=== PATIENT | female | born 1980 | race Caucasian/White ===

== ENCOUNTER 2025-01-01 20:26 | Emergency (ER) | payer OTHER, SELFPAY ==
[2025-01-01] VITALS (9 sets, daily range): BP systolic 106–135; BP diastolic 62–80; PULSE 66–90; RESP 12–23; TEMP 36.8; O2SAT 92–99; BMI 25.1
--- NOTE | 2025-01-01 20:30 | DI.RAD.S_ITS ---
PROCEDURE: XR CHEST 1V INDICATIONS: Chest Pain TECHNIQUE: One view of the chest was acquired. COMPARISON: None. FINDINGS: Surgical changes and devices: None. Lungs and pleura: Lungs are clear. No pleural effusions or pneumothorax. Mediastinum: Mediastinal contours appear normal. Heart size is normal. Bones and chest wall: No suspicious bony lesions. Overlying soft tissues appear unremarkable. IMPRESSION: No acute cardiopulmonary abnormality is seen. Dictated by: James Osei M.D. on 01/01/2025 at 20:51 Approved by: James Osei M.D. on 01/01/2025 at 20:51
--- NOTE | 2025-01-01 20:30 | EKG_ITS ---
[address] [address] Test Date: 2025-01-01 Pat Name: Hayley Vega Department: [facility] Room: Gender: Female [employer] App[employer]ice: CHELSEA DEWEY : 1980 Requested By: Order Number: [id number] Reading MD: Naveen Alexandre MD Measurements Intervals [place] Rate: 79 P: 25 [place]: 146 QRS: 22 QRSD: 82 T: 12 QT: 388 QTc: 444 Interpretive Statements Normal sinus rhythm Electronically Signed On 01-03-2025 6:40:19 PDT by Naveen Alexandre MD
[2025-01-01] MEDS: ASPIRIN 81 MG CHEW TAB 324 MG PO (20:40)
[2025-01-01 21:03] LABS: Add Manual Diff / Slide Review NO; Basophils Absolute Auto 100 /uL (0-100); Basophils Percent Auto 1.3 % (0-2); Eosinophils Absolute Auto 100 /uL (0-450); Eosinophils Percent Auto 1.1 % (2-4); Hematocrit 34.3 % (36-46); Hemoglobin 11.1 g/dL (12.0-16.0); INR 1.2 (0.9-1.3); Lymphocytes Absolute Auto 2300 /uL (1100-4500); Lymphocytes Percent Auto 23.3 % (25-40); Mean Corpuscular HGB Conc 32.4 % (30-36); Mean Corpuscular Hemoglobin 24.6 PG (26-34); Mean Corpuscular Volume 76.1 fL (80-100); Monocytes Absolute Auto 700 /uL (0-900); Monocytes Percent Auto 6.9 % (3-14); Neutrophils Absolute Auto 6500 /uL (1500-7000); Neutrophils Percent Auto 67.4 % (50-75); Platelet Count 287 X10^3/uL (150-400); Prothrombin Time 13.6 SECONDS (9.4-12.5); Red Cell Distribution Width 15.7 % (11.6-14.8); White Blood Cell Count 9.7 X10^3/uL (4.5-11.0)
[2025-01-01 21:06] LABS: PTT Partial Thromboplastin Tim 34 SECONDS (25.1-36.5)
[2025-01-01 21:08] LABS: Alanine Aminotransferase 22 IU/L (<35); Albumin 4.3 g/dL (3.5-5.0); Albumin Globulin Ratio 1.5 (1.0-2.8); Alkaline Phosphatase 54 U/L (38-126); Aspartate Aminotransferase 28 IU/L (14-36); Bilirubin Total 0.8 mg/dL (0.2-1.3); Blood Urea Nitrogen 9 mg/dL (7-17); Calcium 9.2 mg/dL (8.4-10.2); Carbon Dioxide 25 mmol/L (22-32); Chloride 106 mmol/L (98-107); Creatine Kinase 119 U/L (30-135); Estimated Glomerular Filt Rate > 60 mL/min (>60); Globulin 2.9 g/dL (1.7-4.1); Glucose 96 mg/dL (70-99); HEMOLYSIS < 15 (0-50); Lipase 39 U/L (23-300); Magnesium 2.1 mg/dL (1.6-2.3); Potassium 3.2 mmol/L (3.4-5.1); Sodium 138 mmol/L (137-145); Total Protein 7.2 g/dL (6.3-8.2)
--- NOTE | 2025-01-01 21:10 | ED.CHESTPAIN ---
HPI - Chest Pain General Chief Complaint: Chest Pain Stated Complaint: Poss Heart Attack Time Seen by Provider: 01/01/25 20:31 Source: patient Mode of arrival: Family Vehicle Limitations: no limitations History of Present Illness HPI narrative: Patient is a 44-year-old female with a past medical history of type 1 diabetes insulin-dependent presenting from home for evaluation of chest back pain, denies any radiation, states that it started a proximally 20 minutes prior to arrival, states it was during the [place], states that the pain makes her feel lightheaded, she states that she checked her blood glucose and it was 140. She denies any other symptoms such as headache shortness of breath fever chills nausea vomiting abdominal pain or any other GI/ symptoms time. Related Data Previous Rx's ?Medication ?Instructions ?Recorded cyclobenzaprine 10 mg tablet 10 mg PO BEDTIME PRN muscle spasm 01/01/25 #10 tabs Allergies Allergy/AdvReac Type Severity Reaction Status Date / Time No Known Drug Allergies Allergy Verified 01/01/25 20:35 Review of Systems Review of Systems Narrative: General: Denies fever, chills, weight loss HEENT: Denies headache, eye drainage, eye irritation, head trauma, sore throat, voice change Cardiovascular: Positive chest pain, denies palpitations, tachycardia Respiratory: Denies any shortness of breath, cough, wheeze, stridor GI/: Denies any abdominal pain, nausea, vomiting, diarrhea, bright red blood per rectum, melanotic stools, urinary frequency, urinary retention, dysuria, hematuria MSK: Denies any joint pain, muscle pains, swelling Skin: Denies any rashes, lesions, discoloration Neuro: Denies any headache, lightheadedness, dizziness, fainting, weakness Psych: Denies SI/HI Exam Narrative Exam Narrative: General: Cooperative, well-developed, not in acute distress HEENT: Normocephalic, atraumatic, PERRLA, normal sclera, eyelids normal Neck: Active full range of motion, atraumatic Chest: Normal to inspection, negative crepitus, no overlying erythema ecchymosis Respiratory: Normal respiratory effort, not in acute respiratory distress, clear to auscultation bilaterally negative cough, wheeze, tachypnea, rhonchi, rales Cardiology: Regular rate rhythm negative gallop, murmur, rubs GI/: No tenderness to palpation, soft, non rigid, normal to inspection, exam deferred MSK: Full active range of motion in all 4 extremities, atraumatic, no tenderness to palpation of any bony prominences Skin: No rashes or lesions noted Neuro: Alert awake oriented x3, moves all 4 extremities spontaneously, cranial nerves intact, able to answer all questions appropriately follows commands appropriately Psych: Cooperative, negative suicidal or homicidal ideations Initial Vital Signs Initial Vital Signs: Vital Signs Pulse Rate 90 01/01/25 20:33 Blood Pressure 135/80 01/01/25 20:33 Pulse Oximetry 92 01/01/25 20:33 Course Orders Ordered: ED Orders 01/01/25 20:30 XR chest 1V Stat EKG-12 Lead Stat 01/01/25 20:36 Complete Blood Count AUTO DIFF Stat Comprehensive Metabolic Panel Stat Lipase Stat Magnesium Stat NT-proBNP (BNP-Adult 18+) Stat PTT Partial Thromboplastin Marquise Stat Prothrombin Time INR Stat Troponin & CK Cardiac Panel Stat 01/01/25 21:29 CT head/brain wo con Stat 01/01/25 22:35 Trop I [Troponin I] Stat Discontinued Medications Aspirin (Aspirin 81 Mg Chew Tab) 324 mg PO NOW ONE Stop: 01/01/25 20:31 Last Admin: 01/01/25 20:40 Dose: 324 mg Documented By: ISMA Lorazepam (Lorazepam 2 Mg/Ml Inj) 1 mg IV NOW ONE Stop: 01/01/25 21:30 Last Admin: 01/01/25 21:58 Dose: Not Given Documented By: APRIL Lorazepam (Lorazepam 0.5 Mg Tablet) 1 mg PO NOW ONE Stop: 01/01/25 21:49 Last Admin: 01/01/25 21:53 Dose: 1 mg Documented By: WILMER Vital Signs Vital signs: Vital Signs - 8 hr 01/01/25 20:33 01/01/25 20:33 01/01/25 20:34 Temperature 98.2 F Pulse Rate 90 80 Respiratory Rate 22 Blood Pressure 135/80 135/80 Pulse Oximetry 92 99 Oxygen Delivery Method Room Air MDM - Chest Pain Lab Data 01/01/25 20:36 01/01/25 20:36 Labs: Lab Results 01/01/25 01/01/25 Range/Units 20:36 22:35 WBC 9.7 (4.5-11.0) X10^3/uL RBC 4.50 (4.0-5.2) X10^6/uL Hgb 11.1 L (12.0-16.0) g/dL Hct 34.3 L (36-46) % MCV 76.1 L (80-100) fL MCH 24.6 L (26-34) PG MCHC 32.4 (30-36) % RDW 15.7 H (11.6-14.8) % Plt Count 287 (150-400) X10^3/uL Neut % (Auto) 67.4 (50-75) % Lymph % (Auto) 23.3 L (25-40) % [place] % (Auto) 6.9 (3-14) % Eos % (Auto) 1.1 L (2-4) % Baso % (Auto) 1.3 (0-2) % Neut # (Auto) 6500 (4877-1350) /uL Lymph # (Auto) 2300 (9130-2282) /uL [place] # (Auto) 700 (0-900) /uL Eos # (Auto) 100 (0-450) /uL Baso # (Auto) 100 (0-100) /uL PT 13.6 H (9.4-12.5) SECONDS INR 1.2 (0.9-1.3) APTT 34 (25.1-36.5) SECONDS Sodium 138 (137-145) mmol/L Potassium 3.2 L (3.4-5.1) mmol/L Chloride 106 (98-107) mmol/L Carbon Dioxide 25 (22-32) mmol/L BUN 9 (7-17) mg/dL Creatinine 0.60 (0.52-1.04) mg/dL Estimated GFR > 60 (>60) mL/min BUN/Creatinine Ratio 15.0 (6-22) Glucose 96 (70-99) mg/dL Calcium 9.2 (8.4-10.2) mg/dL Magnesium 2.1 (1.6-2.3) mg/dL Total Bilirubin 0.8 (0.2-1.3) mg/dL AST 28 (14-36) IU/L ALT 22 (<35) IU/L Alkaline Phosphatase 54 (38-126) U/L Total Creatine Kinase 119 (30-135) U/L Troponin I < 0.012 < 0.012 (0.01-0.034) ng/mL NT-Pro-B Natriuret Pep < 20 (<125) pg/mL Total Protein 7.2 (6.3-8.2) g/dL Albumin 4.3 (3.5-5.0) g/dL Globulin 2.9 (1.7-4.1) g/dL Albumin/Globulin Ratio 1.5 (1.0-2.8) Lipase 39 (23-300) U/L Imaging Data Chest x-ray: Radiologist's Impression: [place] [address] XRay Report Signed Patient: Hayley Vega MR#: [id number] : 1980 Acct:[id number] Age/Sex: 44 / F Date of Service: 01/01/25 Loc: ED Accession Number: [id number] Procedure: XR chest 1V Ordering Provider: Patrick Matute D.O. PROCEDURE: XR CHEST 1V INDICATIONS: Chest Pain TECHNIQUE: One view of the chest was acquired. COMPARISON: None. FINDINGS: Surgical changes and devices: None. Lungs and pleura: Lungs are clear. No pleural effusions or pneumothorax. Mediastinum: Mediastinal contours appear normal. Heart size is normal. Bones and chest wall: No suspicious bony lesions. Overlying soft tissues appear unremarkable. IMPRESSION: No acute cardiopulmonary abnormality is seen. CT scan - head: Radiologist's Impression: [place] [address] CT Scan Report Signed Patient: Hayley Vega MR#: [id number] : 1980 Acct:[id number] Age/Sex: 44 / F Date of Service: 01/01/25 Loc: ED Accession Number: [id number] Procedure: CT head/brain wo con Ordering Provider: Patrick Matute D.O. PROCEDURE: CT HEAD/BRAIN WO CON INDICATIONS: light headed TECHNIQUE: Noncontrast 4.5 mm thick angled axial sections acquired from the foramen magnum to the vertex, with coronal and sagittal reformats. For radiation dose reduction, the following was used: automated exposure control, adjustment of mA and/or kV according to patient size. COMPARISON: None. FINDINGS: Image quality: Diagnostic. CSF spaces: Basal cisterns are patent. No extra-axial fluid collections. Ventricles are normal in size and shape. Brain: No midline shift. No intracranial mass effect or hemorrhage. Leslie-white matter interface is normal. Skull and face: Calvarium and visualized facial bones are intact, without suspicious lesions. Sinuses: Visualized sinuses and mastoids are clear. IMPRESSION: CT head without acute intracranial abnormalities. No mass or mass effect visualized. ECG Data Interpretation: EKG interpreted ED physician sinus 79 beats per minute QTC 444, nonspecific ST changes no STEMI MDM Narrative Medical decision making narrative: Patient is a 44-year-old female with a past medical history of type 1 diabetes insulin-dependent presents to the emergency department from home for evaluation of back/chest pain, states that this started 20 minutes prior to arrival. Patient states that these symptoms also caused her to feel little lightheaded dizzy. She did check her blood glucose and it was 140. At time of evaluation patient not complaining of any pain, lab work imaging performed here in the emergency department did not show any acute findings, CT head no acute intracranial abnormalities. Chest x-ray without any acute cardiopulmonary abnormality, troponin negative x2 EKG nonischemic in nature patient had improvement/resolution of symptoms after p.o. Ativan most likely pain musculoskeletal in nature however still gave patient recommendations to follow up with Cardiology strict return precautions given she verbalized understanding of this and agrees to being discharged home with outpatient follow up, patient will heart score 0 Discharge Plan Departure Patient Disposition: Home Clinical Impression: Chest pain, Back pain Instructions: DI for Chest Pain Activity Restrictions/Additional Instructions: Please follow up with Cardiology and primary care in outpatient setting Please read the discharge instructions sheet carefully and bring all papers to all doctor follow-up visits, as it may contain information that your doctor may want to see. Disease processes change and evolve, if your symptoms worsen or if you develop any new symptoms that are concerning to you please return for evaluation. Your evaluation today does not show any evidence of any life-threatening/serious illnesses requiring admission to the hospital or surgery. Please follow-up with your doctor for re-evaluation in approximately 1 day. Seek immediate medical attention for any worrisome symptoms. *If you do not have a primary care provider please contact the [facility] Resource line at [phone]. They will ask some questions about your medical history and help get you set up with a doctor in the community. Prescriptions: New cyclobenzaprine 10 mg tablet 10 mg PO BEDTIME PRN (Reason: muscle spasm) Qty: 10 0RF Referrals: Jack Chowdhury DO [Primary Care Provider, Family Practice] Stand Alone Forms: Patient Portal/API
[2025-01-01 21:19] LABS: NT-proBNP (BNP-Adult 18+) < 20 pg/mL (<125); Troponin I < 0.012 ng/mL (0.01-0.034)
--- NOTE | 2025-01-01 21:29 | DI.CT.S_ITS ---
PROCEDURE: CT HEAD/BRAIN WO CON INDICATIONS: light headed TECHNIQUE: Noncontrast 4.5 mm thick angled axial sections acquired from the foramen magnum to the vertex, with coronal and sagittal reformats. For radiation dose reduction, the following was used: automated exposure control, adjustment of mA and/or kV according to patient size. COMPARISON: None. FINDINGS: Image quality: Diagnostic. CSF spaces: Basal cisterns are patent. No extra-axial fluid collections. Ventricles are normal in size and shape. Brain: No midline shift. No intracranial mass effect or hemorrhage. Leslie- white matter interface is normal. Skull and face: Calvarium and visualized facial bones are intact, without suspicious lesions. Sinuses: Visualized sinuses and mastoids are clear. IMPRESSION: CT head without acute intracranial abnormalities. No mass or mass effect visualized. Dictated by: Phoenix Albarran M.D. on 01/01/2025 at 21:59 Approved by: Phoenix Albarran M.D. on 01/01/2025 at 21:59
[2025-01-01] MEDS: LORazepam 0.5 MG TABLET 1 MG PO (21:53)
[2025-01-01 23:07] LABS: Troponin I < 0.012 ng/mL (0.01-0.034)
== END 2025-01-01 23:50 | disposition home or self-care (01) ==
PROVIDERS: Emergency Provider Student in an Organized Health Care Education/Training Program; PCP Family Medicine
DX: R07.9 Chest pain, unspecified (principal); M54.9 Dorsalgia, unspecified; E10.9 Type 1 diabetes mellitus without complications
CPT/HCPCS: 36415; 70450; 71045; 80053; 82550; 83690; 83735; 83880; 84484; 85025; 85610; 85730; 93005; 93010; 99284